=== PATIENT | female | born 1985 ===

== ENCOUNTER → 2020-07-01 06:03 | Outpatient (CLI) | payer MEDICARE ==
[2020-07-01 06:32] LABS: BASOPHILS 0.1 % (0-2); EOSINOPHILS 0 % (0-7); HEMATOCRIT 51.8 % (36.0-48.0); HEMOGLOBIN 16.8 g/dL (12-16); IMMATURE GRANULOCYTES 0.2 % (0-5); LYMPHOCYTES 14.7 % (15-50); MCH 28.9 pg (26.0-34.0); MCHC 32.4 g/dL (31.0-37.0); MCV 89.2 fL (80.0-100.0); MEAN PLATELET VOLUME 10.1 fL (7.4-10.4); MONOCYTES 10.7 % (2-11); NEUTROPHILS 74.3 % (40-80); PLATELET COUNT 296 10x3/uL (130-400); RBC 5.81 10x6/uL (4.00-5.40); RDW 14.9 % (11.5-14.5); WBC 13.1 10x3/uL (4.8-10.8)
[2020-07-01 06:48] LABS: MONO NEGATIVE (NEGATIVE)
[2020-07-01 06:59] LABS: ALBUMIN 4.2 g/dL (3.4-5.0); ANION GAP 10.9 mmol/L (8-16); BILIRUBIN - TOTAL 0.42 mg/dL (0.2-1.3); CARBON DIOXIDE 29.4 mmol/L (21.0-32.0); CREATININE - SERUM 1.1 mg/dL (0.6-1.3); POTASSIUM - SERUM 4.3 mmol/L (3.5-5.1); PROTEIN - SERUM 7.9 g/dL (6.4-8.2); THYROID STIMULATING HORMONE 0.59 uIU/mL (0.36-3.74)
[2020-07-01 07:40] LABS: ERYTHROCYTE SEDIMENTATION RATE 2 mm/hr (0-20)
[2020-07-03 11:11] LABS: EBV VIRAL CAPSID AB IGM 79.1 U/mL (0.0-35.9)
== END | disposition home or self-care (01) ==
LOC: D.LABREF 06:03
PROVIDERS: ATTEND Legal Medicine
DX: R50.9 Fever, unspecified (principal); R31.9 Hematuria, unspecified; M79.10 Myalgia, unspecified site

== ENCOUNTER → 2020-07-20 20:07 | Outpatient (CLI) | payer MEDICARE | END | disposition home or self-care (01) | LOC: D.LABREF 20:07 | PROVIDERS: ATTEND Legal Medicine | DX: A77.0 Spotted fever due to Rickettsia rickettsii (principal) ==